=== PATIENT | female | born 1960 | race Caucasian/White ===

== ENCOUNTER 2018-05-04 09:22 | Emergency (ER) | payer OTHER ==
[2018-05-04 09:33] VITALS: BMI 45.4
[2018-05-04] MEDS ORDERED: Albuterol-Ipratrop 3 mg / 0.5 (3 ml) UD IH STA (09:39)
--- NOTE | 2018-05-04 09:58 | RAD ---
HISTORY: Chest pain COMPARISON: No prior. FINDINGS: LUNGS: The lungs are well inflated and clear. PLEURA: No significant pleural effusion identified, no pneumothorax apparent. CARDIOVASCULAR: The heart is normal in size. Atherosclerotic aortic arch calcifications are present. OSSEOUS STRUCTURES: No significant abnormalities. VISUALIZED UPPER ABDOMEN: Normal. OTHER FINDINGS: None. IMPRESSION: No active pulmonary disease.
[2018-05-04 10:10] LABS: BASO # 0.02 K/mm3 (0.0-2.0); BASO % 0.3 % (0.0-3.0); EOS # 0.6 (0.0-0.7); EOS % 8.1 % (1.5-5.0); GRAN # 4.63 (1.4-6.5); HEMOGLOBIN 11.4 g/dL (12.0-16.0); LYMPH # 1.6 (1.2-3.4); LYMPH % 21.5 % (22.0-35.0); MEAN CELL VOLUME 85.3 fl (80.0-105.0); MEAN CORPUSCULAR HEMOGLOBIN 26.6 pg (25.0-35.0); MEAN CORPUSCULAR HGB CONC 31.2 g/dl (31.0-37.0); MEAN PLATELET VOLUME 9.7 fl (7.0-11.0); MONO # 0.4 (0.1-0.6); MONO % 6.1 % (1.0-6.0); RBC 4.28 10^6/uL (3.5-6.1); RED CELL DISTRIBUTION WIDTH 14.7 % (11.5-14.5); WHITE BLOOD COUNT 7.2 10^3/ul (4.5-11.0)
[2018-05-04 10:19] LABS: ALB/GLOB RATIO 1.2 (1.1-1.8); ALBUMIN 4.1 g/dL (3.0-4.8); ALT/SGPT 24 U/L (7-56); AST/SGOT 21 U/L (14-36); BLOOD UREA NITROGEN 16 mg/dL (7-21); CALCIUM 9.3 mg/dL (8.4-10.5); GFR AFRICAN-AMERICAN > 60; GFR NON-AFRICAN AMERICAN > 60
--- NOTE | 2018-05-04 10:20 | ED PDOC ---
Arrival/HPI - General Chief Complaint: Chest Pain Time Seen by Provider: 05/04/18 09:30 Historian: Patient - History of Present Illness Narrative History of Present Illness (Text): 05/04/18 10:14 58yo female with PMhx of hypertension, hypothyroid and Asthma who present with left sided chest pain. Notes that pain started on the left shoulder this morning ( although it states 2days in triage) and then radiated to her left sided chest and neck area this morning. She described the pain as "stabbing and sharp". States pain improved enroute to the ED without medication. Also reports SOB x days. States she saw her PMD and was given a ?steroid base inhaler without relieve. Notes that SOB is her typical asthma symptom, but worse this time. She denies diaphoresis, nausea, vomiting, ripping/tearing upper back pain, cough, fever, chills, LE edema, calf pain, abdominal pain, trauma, focal weakness, any other complaint. Past Medical History - Provider Review Nursing Documentation Reviewed: Yes - Reproductive Menopause: Yes - Cardiac Hx Cardiac Disorders: Yes Hx Hypertension: Yes - Pulmonary Hx Asthma: Yes - Endocrine/Metabolic Hx Hypothyroidism: Yes - Psychiatric Hx Substance Use: No Family/Social History - Physician Review Nursing Documentation Reviewed: Yes Family/Social History: Unknown Family HX Smoking Status: Never Smoked Hx Alcohol Use: No Hx Substance Use: No Allergies/Home Meds Allergies/Adverse Reactions: Allergies No Known Allergies Allergy (Verified 05/04/18 09:33) Home Medications: Home Meds Medication Instructions Recorded Confirmed Budesonide/Formoterol Fumarate 1 aer IH BID 05/04/18 05/04/18 [Symbicort] Levothyroxine Sodium [Levoxyl] 0.137 mg PO DAILY 05/04/18 05/04/18 Losartan [Cozaar] 50 mg PO DAILY 05/04/18 05/04/18 Review of Systems - Physician Review All systems were reviewed & negative as marked: Yes - Review of Systems Constitutional: Normal Eyes: Normal ENT: Normal Respiratory: SOB, Wheezing. absent: Cough, Sputum Cardiovascular: Chest Pain Gastrointestinal: Normal Genitourinary Female: Normal Musculoskeletal: Normal Skin: Normal Neurological: Normal Endocrine: Normal Hemo/Lymphatic: Normal Psychiatric: Normal Physical Exam Vital Signs Reviewed: Yes Vital Signs Temp Pulse Resp BP Pulse Ox 05/04/18 12:11 98.0 F 73 18 95 05/04/18 11:26 98.1 F 71 17 144/75 95 05/04/18 10:49 71 18 144/75 96 05/04/18 09:38 98.0 F 73 18 166/77 H 96 Temperature: Afebrile Blood Pressure: Normal Pulse: Regular Respiratory Rate: Normal Appearance: Positive for: Well-Appearing, Non-Toxic, Comfortable Pain Distress: None Mental Status: Positive for: Alert and Oriented X 3 - Systems Exam Head: Present: Atraumatic, Normocephalic Pupils: Present: PERRL Extroacular Muscles: Present: EOMI Conjunctiva: Present: Normal Mouth: Present: Moist Mucous Membranes Neck: Present: Normal Range of Motion Respiratory/Chest: Present: Clear to Auscultation, Good Air Exchange, Wheezes ( Mild diffuse expiratory wheeze). No: Respiratory Distress, Accessory Muscle Use , Decreased Breath Sounds, Rales, Retracting, Rhonchi Cardiovascular: Present: Regular Rate and Rhythm, Normal S1, S2. No: Murmurs Abdomen: No: Tenderness, Distention, Peritoneal Signs Back: Present: Normal Inspection Upper Extremity: Present: Normal Inspection. No: Cyanosis, Edema Lower Extremity: Present: Normal Inspection. No: Edema Neurological: Present: GCS=15, CN II-XII Intact, Speech Normal Skin: Present: Warm, Dry, Normal Color. No: Rashes Psychiatric: Present: Alert, Oriented x 3, Normal Insight, Normal Concentration Medical Decision Making ED Course and Treatment: 05/04/18 20:20 Pt presented to ED for stated history. She had mild diffuse wheeze on exam and it resolved with Duoneb x 3 and solu medrol. Her first CE was negative , but pt needed admission for further evaluation secondary to her cardiac risk factors. ASA 325mg given. EKG NSR @73bpm CXR NAD Result and plan was DW the pt and she agreed. Case was DW Dr. Aguilera and he accepted pt for admission. - Lab Interpretations Lab Results: 05/04/18 09:50 05/04/18 09:50 Lab Results 05/04/18 10:50: Urine Color Yellow, Urine Appearance Clear, Urine pH 7.0, Ur Specific [place] 1.010, Urine Protein Negative, Urine Glucose (UA) Negative, Urine Ketones Negative, Urine Blood Negative, Urine Nitrate Negative, Urine Bilirubin Negative, Urine Urobilinogen 0.2, Ur Leukocyte Esterase Negative 05/04/18 09:50: Sodium 140, Potassium 4.1, Chloride 101, Carbon Dioxide 28, Anion Gap 15, BUN 16, Creatinine 0.7, Est GFR ( Amer) > 60, Est GFR (Non- Af Amer) > 60, Random Glucose 100, Calcium 9.3, Magnesium 2.0, Total Bilirubin 0.2, AST 21, ALT 24, Alkaline Phosphatase 59, Lactate Dehydrogenase 459, Total Creatine Kinase 145, Troponin I < 0.01, NT-Pro-B Natriuret Pep 57.4, Total Protein 7.5, Albumin 4.1, Globulin 3.3, Albumin/Globulin Ratio 1.2 05/04/18 09:50: PT 11.1, INR 0.97, APTT 31.9, D-Dimer, Quantitative < 200 05/04/18 09:50: WBC 7.2, RBC 4.28, Hgb 11.4 L, Hct 36.5, MCV 85.3, MCH 26.6, MCHC 31.2, RDW 14.7 H, Plt Count 257, MPV 9.7, Gran % 64.0, Lymph % (Auto) 21.5 L, [place] % (Auto) 6.1 H, Eos % (Auto) 8.1 H, Baso % (Auto) 0.3, Gran # 4.63, Lymph # (Auto) 1.6, [place] # (Auto) 0.4, Eos # (Auto) 0.6, Baso # (Auto) 0.02 - RAD Interpretation Radiology Orders: 05/04/18 09:38 CHEST PORTABLE [RAD] Stat - Medication Orders Current Medication Orders: Discontinued Medications Albuterol/Ipratropium (Duoneb 3 Mg/0.5 Mg (3 Ml) Ud) 3 ml IH Q15M STA Stop: 05/04/18 09:40 Last Admin: 05/04/18 10:00 Dose: 3 ml Aspirin (Aspirin) 325 mg PO STAT STA Stop: 05/04/18 09:40 Last Admin: 05/04/18 10:00 Dose: 325 mg Methylprednisolone (Solu-Medrol) 125 mg IVP STAT STA Stop: 05/04/18 09:40 Last Admin: 05/04/18 10:00 Dose: 125 mg IVP Administration Document 05/04/18 10:00 [email or web address] (Rec: 05/04/18 10:00 [email or web address] [id number]) Charges for Administration # of IVP Administrations 1 Disposition/Present on Arrival - Present on Arrival Any Indicators Present on Arrival: No History of DVT/PE: No History of Uncontrolled Diabetes: No Urinary Catheter: No History of Decub. Ulcer: No History Surgical Site Infection Following: None - Disposition Have Diagnosis and Disposition been Completed?: Yes Diagnosis: Chest pain, Asthma attack Disposition: AGAINST MEDICAL ADVICE Disposition Time: 12:15 Condition: STABLE Discharge Instructions (ExitCare): Chest Pain (ED) Referrals: Trevor Hardy MD [Primary Care Provider] -
[2018-05-04 10:22] LABS: D DIMER < 200 ng/mL (0-243); INR 0.97 (0.93-1.08); PARTIAL THROMBOPLASTIN TIME 31.9 Seconds (25.1-36.5); PROTHROMBIN TIME 11.1 SECONDS (9.4-12.5)
[2018-05-04 10:30] LABS: B-TYPE NATRIURETIC PEPTIDE 57.4 pg/mL (0-450); TROPONIN I < 0.01 ng/mL
[2018-05-04 10:50] VITALS: BP 144/75
[2018-05-04 11:06] LABS: URINE APPEARANCE CLEAR (CLEAR); URINE BILIRUBIN NEGATIVE (NEGATIVE); URINE BLOOD NEGATIVE (NEGATIVE); URINE COLOR YELLOW (YELLOW); URINE GLUCOSE (UA) NEGATIVE (NEGATIVE); URINE LEUKOCYTE ESTERASE NEGATIVE Leu/uL (NEGATIVE); URINE PROTEIN NEGATIVE mg/dL (<30 mg/dL); URINE UROBILINOGEN 0.2 E.U./dL (<1 E.U./dL)
[2018-05-04 11:26] VITALS: O2SAT 95
[2018-05-04 12:13] VITALS: PULSE 73; RESP 18; TEMP 98
--- NOTE | 2018-05-04 14:01 | CARD ---
APPROVED REPORT EKG Measurement Heart [id number] <Conclusion> Normal sinus rhythm Normal ECG
--- NOTE | 2018-05-05 00:09 | CON ---
DATE: 05/04/2018 SERVICE: Cardiology. REASON FOR THE CONSULTATION: Followup chest pain, cardiac evaluation. BRIEF CLINICAL HISTORY: This is a 58-year-old mild to moderate obese female with past medical history significant for childhood hypertension, hypothyroidism. Came in to the ER with complaint of sharp chest pain like something is pinching and later on the patient has shoulder pain off an on for a while and increases on movement and then chest pain went to neck, something is sharp in the neck, then chest pain subsided completely. The patient has a known history of asthma, taking Proventil puff, supposed to take twice, but she takes only once. PAST MEDICAL HISTORY: Past history significant for asthma, hypothyroidism and hypertension. SOCIAL HISTORY: Denies any smoking. Denies any history of alcohol abuse. CURRENT MEDICATIONS: The patient is taking Symbicort one puff b.i.d. supposed to take, but takes only once; losartan 50 mg once a day, levothyroxine 137 mcg p.o. daily. REVIEW OF SYSTEMS: As per HPI. Height of the patient is 5 feet 4 inches. PHYSICAL EXAMINATION: VITAL SIGNS: Weight of the patient 265. Body mass index 45.5 kg/m2. Rest of the vitals; temperature afebrile, heart rate 73, blood pressure 144/75. HEENT: PERRLA. Extraocular muscles intact. NECK: Supple. No carotid bruit. No thyromegaly. CHEST: Clear to auscultation. HEART: S1 and S2 regular. ABDOMEN: Soft. EXTREMITIES: Clubbing and cyanosis negative. LABORATORY DATA: Blood workup as follows; WBC 7.2, hemoglobin 11.4, hematocrit 36.5, platelet count 257. Chemistry shows sodium 140, potassium , chloride 101, carbon dioxide 28, anion gap of 15, BUN 16, creatinine 0.7. Troponin 0.01. EKG shows normal sinus. No acute ST-T changes noted. IMPRESSION: Atypical chest pain, troponin negative, no evidence of acute myocardial infarction, but given the multiple episodes of coronary artery disease, obesity, hypertension, suggest stress test and echocardiogram. Discussed with the patient and and Dr. Uriarte. She is Dr. Uriarte's sister in law. We will do stress test as outpatient. Discussed with emergency room physician, Dr. Solomon Peng and told him the patient can be discharged home and follow up as outpatient for a stress test. Thank you, for providing us the opportunity in taking care of Wilda Uriarte. Kavya Key MD cc: Solomon Peng DO
--- NOTE | 2018-05-05 14:38 | CP.PCM.DIS ---
<Stan Monteiro - Last Filed: 05/05/18 15:09> Provider - Provider Attending physician: Dr. Aguilera Primary care physician: Trevor Hardy MD Time Spent in preparation of Discharge (in minutes): 15 Diagnosis - Discharge Diagnosis (1) Chest pain Status: Acute Priority: High (2) Dyspnea Status: Acute Priority: High (3) Asthma Status: Chronic Priority: High Hospital Course - Lab Results Lab Results: Most Recent Lab Values WBC 7.2 10^3/ul (4.5-11.0) 05/04/18 09:50 RBC 4.28 10^6/uL (3.5-6.1) 05/04/18 09:50 Hgb 11.4 g/dL (12.0-16.0) L 05/04/18 09:50 Hct 36.5 % (36.0-48.0) 05/04/18 09:50 MCV 85.3 fl (80.0-105.0) 05/04/18 09:50 MCH 26.6 pg (25.0-35.0) 05/04/18 09:50 MCHC 31.2 g/dl (31.0-37.0) 05/04/18 09:50 RDW 14.7 % (11.5-14.5) H 05/04/18 09:50 Plt Count 257 10^3/uL (120.0-450.0) 05/04/18 09:50 MPV 9.7 fl (7.0-11.0) 05/04/18 09:50 Gran % 64.0 % (50.0-68.0) 05/04/18 09:50 Lymph % (Auto) 21.5 % (22.0-35.0) L 05/04/18 09:50 [place] % (Auto) 6.1 % (1.0-6.0) H 05/04/18 09:50 Eos % (Auto) 8.1 % (1.5-5.0) H 05/04/18 09:50 Baso % (Auto) 0.3 % (0.0-3.0) 05/04/18 09:50 Gran # 4.63 (1.4-6.5) 05/04/18 09:50 Lymph # (Auto) 1.6 (1.2-3.4) 05/04/18 09:50 [place] # (Auto) 0.4 (0.1-0.6) 05/04/18 09:50 Eos # (Auto) 0.6 (0.0-0.7) 05/04/18 09:50 Baso # (Auto) 0.02 K/mm3 (0.0-2.0) 05/04/18 09:50 PT 11.1 SECONDS (9.4-12.5) 05/04/18 09:50 INR 0.97 (0.93-1.08) 05/04/18 09:50 APTT 31.9 Seconds (25.1-36.5) 05/04/18 09:50 D-Dimer, Quantitative < 200 ng/mL (0-243) 05/04/18 09:50 Sodium 140 mmol/L (132-148) 05/04/18 09:50 Potassium 4.1 mmol/L (3.6-5.0) 05/04/18 09:50 Chloride 101 mmol/L (98-107) 05/04/18 09:50 Carbon Dioxide 28 mmol/L (21-33) 05/04/18 09:50 Anion Gap 15 (10-20) 05/04/18 09:50 BUN 16 mg/dL (7-21) 05/04/18 09:50 Creatinine 0.7 mg/dl (0.7-1.2) 05/04/18 09:50 Est GFR ( Amer) > 60 05/04/18 09:50 Est GFR (Non-Af Amer) > 60 05/04/18 09:50 Random Glucose 100 mg/dL (70-110) 05/04/18 09:50 Calcium 9.3 mg/dL (8.4-10.5) 05/04/18 09:50 Magnesium 2.0 mg/dL (1.7-2.2) 05/04/18 09:50 Total Bilirubin 0.2 mg/dL (0.2-1.3) 05/04/18 09:50 AST 21 U/L (14-36) 05/04/18 09:50 ALT 24 U/L (7-56) 05/04/18 09:50 Alkaline Phosphatase 59 U/L (38-126) 05/04/18 09:50 Lactate Dehydrogenase 459 U/L (333-699) 05/04/18 09:50 Total Creatine Kinase 145 U/L (35-230) 05/04/18 09:50 Troponin I < 0.01 ng/mL 05/04/18 09:50 NT-Pro-B Natriuret Pep 57.4 pg/mL (0-450) 05/04/18 09:50 Total Protein 7.5 g/dL (5.8-8.3) 05/04/18 09:50 Albumin 4.1 g/dL (3.0-4.8) 05/04/18 09:50 Globulin 3.3 gm/dL 05/04/18 09:50 Albumin/Globulin Ratio 1.2 (1.1-1.8) 05/04/18 09:50 Urine Color Yellow (YELLOW) 05/04/18 10:50 Urine Appearance Clear (CLEAR) 05/04/18 10:50 Urine pH 7.0 (4.7-8.0) 05/04/18 10:50 Ur Specific [place] 1.010 (1.005-1.035) 05/04/18 10:50 Urine Protein Negative mg/dL (<30 mg/dL) 05/04/18 10:50 Urine Glucose (UA) Negative mg/dL (NEGATIVE) 05/04/18 10:50 Urine Ketones Negative mg/dL (NEGATIVE) 05/04/18 10:50 Urine Blood Negative (NEGATIVE) 05/04/18 10:50 Urine Nitrate Negative (NEGATIVE) 05/04/18 10:50 Urine Bilirubin Negative (NEGATIVE) 05/04/18 10:50 Urine Urobilinogen 0.2 E.U./dL (<1 E.U./dL) 05/04/18 10:50 Ur Leukocyte Esterase Negative Loan/uL (NEGATIVE) 05/04/18 10:50 - Hospital Course Hospital Course: Patient is a 58 female with a history of coronary artery disease, obesity, hypertension who presented with atypical chest pain. Patient was evaluated by ED physician and Intellectual Property Manager Dr. Key. As per cardiology there was no evidence of AR. Cardiology discussed with ED attending that patient can be discharged with instructions for outpatient stress test. Patient was to be admitted as per emergency medicine attending however patient refused to stay and signed out against medical advice. Patient was explained the consequences of singing out against medical advice which included possible AR, asthma exacerbation, or events that could eventually lead to . Patient did not any further examining and stated she is aware that whatever happens she is responsible for. Case reviewed and discussed with attending Stan Monteiro PGY2 Discharge Plan - Follow Up Plan Condition: STABLE Disposition: AGAINST MEDICAL ADVICE Instructions: Chest Pain (ED) Referrals: Trevor Hardy MD [Primary Care Provider] - <Isela Aguilera - Last Filed: 05/05/18 15:20> Provider - Provider Primary care physician: Trevor Hardy MD Hospital Course - Lab Results Lab Results: Most Recent Lab Values WBC 7.2 10^3/ul (4.5-11.0) 05/04/18 09:50 RBC 4.28 10^6/uL (3.5-6.1) 05/04/18 09:50 Hgb 11.4 g/dL (12.0-16.0) L 05/04/18 09:50 Hct 36.5 % (36.0-48.0) 05/04/18 09:50 MCV 85.3 fl (80.0-105.0) 05/04/18 09:50 MCH 26.6 pg (25.0-35.0) 05/04/18 09:50 MCHC 31.2 g/dl (31.0-37.0) 05/04/18 09:50 RDW 14.7 % (11.5-14.5) H 05/04/18 09:50 Plt Count 257 10^3/uL (120.0-450.0) 05/04/18 09:50 MPV 9.7 fl (7.0-11.0) 05/04/18 09:50 Gran % 64.0 % (50.0-68.0) 05/04/18 09:50 Lymph % (Auto) 21.5 % (22.0-35.0) L 05/04/18 09:50 [place] % (Auto) 6.1 % (1.0-6.0) H 05/04/18 09:50 Eos % (Auto) 8.1 % (1.5-5.0) H 05/04/18 09:50 Baso % (Auto) 0.3 % (0.0-3.0) 05/04/18 09:50 Gran # 4.63 (1.4-6.5) 05/04/18 09:50 Lymph # (Auto) 1.6 (1.2-3.4) 05/04/18 09:50 [place] # (Auto) 0.4 (0.1-0.6) 05/04/18 09:50 Eos # (Auto) 0.6 (0.0-0.7) 05/04/18 09:50 Baso # (Auto) 0.02 K/mm3 (0.0-2.0) 05/04/18 09:50 PT 11.1 SECONDS (9.4-12.5) 05/04/18 09:50 INR 0.97 (0.93-1.08) 05/04/18 09:50 APTT 31.9 Seconds (25.1-36.5) 05/04/18 09:50 D-Dimer, Quantitative < 200 ng/mL (0-243) 05/04/18 09:50 Sodium 140 mmol/L (132-148) 05/04/18 09:50 Potassium 4.1 mmol/L (3.6-5.0) 05/04/18 09:50 Chloride 101 mmol/L (98-107) 05/04/18 09:50 Carbon Dioxide 28 mmol/L (21-33) 05/04/18 09:50 Anion Gap 15 (10-20) 05/04/18 09:50 BUN 16 mg/dL (7-21) 05/04/18 09:50 Creatinine 0.7 mg/dl (0.7-1.2) 05/04/18 09:50 Est GFR ( Amer) > 60 05/04/18 09:50 Est GFR (Non-Af Amer) > 60 05/04/18 09:50 Random Glucose 100 mg/dL (70-110) 05/04/18 09:50 Calcium 9.3 mg/dL (8.4-10.5) 05/04/18 09:50 Magnesium 2.0 mg/dL (1.7-2.2) 05/04/18 09:50 Total Bilirubin 0.2 mg/dL (0.2-1.3) 05/04/18 09:50 AST 21 U/L (14-36) 05/04/18 09:50 ALT 24 U/L (7-56) 05/04/18 09:50 Alkaline Phosphatase 59 U/L (38-126) 05/04/18 09:50 Lactate Dehydrogenase 459 U/L (333-699) 05/04/18 09:50 Total Creatine Kinase 145 U/L (35-230) 05/04/18 09:50 Troponin I < 0.01 ng/mL 05/04/18 09:50 NT-Pro-B Natriuret Pep 57.4 pg/mL (0-450) 05/04/18 09:50 Total Protein 7.5 g/dL (5.8-8.3) 05/04/18 09:50 Albumin 4.1 g/dL (3.0-4.8) 05/04/18 09:50 Globulin 3.3 gm/dL 05/04/18 09:50 Albumin/Globulin Ratio 1.2 (1.1-1.8) 05/04/18 09:50 Urine Color Yellow (YELLOW) 05/04/18 10:50 Urine Appearance Clear (CLEAR) 05/04/18 10:50 Urine pH 7.0 (4.7-8.0) 05/04/18 10:50 Ur Specific [place] 1.010 (1.005-1.035) 05/04/18 10:50 Urine Protein Negative mg/dL (<30 mg/dL) 05/04/18 10:50 Urine Glucose (UA) Negative mg/dL (NEGATIVE) 05/04/18 10:50 Urine Ketones Negative mg/dL (NEGATIVE) 05/04/18 10:50 Urine Blood Negative (NEGATIVE) 05/04/18 10:50 Urine Nitrate Negative (NEGATIVE) 05/04/18 10:50 Urine Bilirubin Negative (NEGATIVE) 05/04/18 10:50 Urine Urobilinogen 0.2 E.U./dL (<1 E.U./dL) 05/04/18 10:50 Ur Leukocyte Esterase Negative Loan/uL (NEGATIVE) 05/04/18 10:50 Attending/Attestation - Attestation I have reviewed all pertinent clinical information, including history, physical exam and plan: Yes Notes (Text): 05/05/18 15:19 Patient left AMA from ER prior to being seen by hospitalist. She was seen by cardiology and will follow up with pmd and cardiology.
== END 2018-05-04 12:12 | disposition left against medical advice (07) ==
LOC: ED 09:22 → UNDOADMOB 10:52 → ERH 10:52 → ED 12:12
DX: R07.9 Chest pain, unspecified (principal); J45.909 Unspecified asthma, uncomplicated; I10 Essential (primary) hypertension
CPT/HCPCS: 71045; 80053; 81003; 82550; 83615; 83735; 83880; 84484; 85025; 85378; 85610; 85730; 93005; 96374; 99284; J2930